=== PATIENT | male | born 1940 | race Caucasian/White ===

== ENCOUNTER → 2020-01-30 16:47 | Outpatient (CLI) | payer MEDICARE, SELFPAY ==
--- NOTE | ~2020-01-30 | XR_ITS ---
EXAMINATION: XR chest 2V DATE: 01/30/2020 16:58 INDICATION: Cough. Shortness of breath. TECHNIQUE: Frontal and lateral views of the chest were obtained. COMPARISON: Chest 2 views 09/12/2015, CT abdomen and pelvis 05/23/2019 FINDINGS: The lungs are hyperexpanded with lucencies and architectural distortion, consistent with em physema. There is multifocal mild scarring. There is blunting of left posterior costophrenic angle co rrelating with scarring by CT. No pleural effusion or pneumothorax. The heart size is normal. IMPRESSION: 1. Severe emphysema. Reviewed, dictated and finalized at location A. IMPRESSION: 1. Severe emphysema.
== END ==
PROVIDERS: PCP Family Medicine; Visit Provider Physician Assistant
DX: R05 Cough (principal); R06.02 Shortness of breath; J43.9 Emphysema, unspecified
CPT/HCPCS: 71046

== ENCOUNTER 2020-03-08 00:11 | Day surgery (SDC) | payer MEDICARE, SELFPAY ==
--- NOTE | 2020-02-28 10:53 | PM.HPGS ---
History of Present Illness History of Present Illness Consent: Risks, benefits, and alternatives have been discussed and questions answered. Patient agrees to proceed with procedure. Chief complaint: Bladder Ca Narrative: Toan Acevedo is a 79 year old male with a long history of recurrent bladder tumors. Recent surveillance cystoscopy showed an area of hyperemia in the posterior bladder wall just above the trigone. Urine cytology was abnormal, prompting decision to proceed with cystoscopy and bladder biopsy today, with possible TURBT. Review of Systems Cardiovascular: Cardiovascular: Denies chest pain, Denies lightheadedness, Denies palpitations and Denies dyspnea Respiratory: Respiratory: Denies dyspnea Gastrointestinal: Gastrointestinal: Denies diarrhea, Denies nausea and Denies vomiting Genitourinary: Genitourinary: Denies hematuria and Denies dysuria Endocrine: Endocrine: Denies palpitations [facility] Family History Family History Mother Diabetes mellitus Other Family history of malignant neoplasm of urinary bladder Social History Social History Smoking status: Current every day smoker Alcohol intake: never Meds Home Medications and Allergies Home Medications Medication Instructions Recorded Confirmed Type alprazolam 0.5 mg tablet 0.5 mg PO .qhs #90 tablet 12/19/19 Rx doxycycline hyclate 100 mg capsule 100 mg PO BID #20 cap 01/30/20 01/30/20 Rx losartan 50 mg tablet 50 mg PO DAILY 01/30/20 History methylprednisolone 4 mg tablets in See Rx Instructions PO PER PKG DIR 01/30/20 01/30/20 Rx a dose pack #21 each simvastatin 40 mg tablet 40 mg PO DAILY 01/30/20 History fluticasone fur. 100 mcg-umeclid 1 inhalation INHALATION DAILY #60 02/03/20 Rx 62.5 mcg-vilant 25 mcg each inhalat.powder Allergies Allergy/AdvReac Type Severity Reaction Status Date / Time cephalexin Allergy Unknown fatigue, Verified 01/30/20 15:50 not feeling right, bodyaches levofloxacin AdvReac Mild GI Verified 01/30/20 15:50 DISTRESS Exam Const: General: no acute distress Resp: Effort & Inspection: normal respiratory effort GI: Inspection: non-distended GI Palp: No abdominal tenderness and No Guarding due to palpation present (GI) Auscultation: normal bowel sounds Assessment and Plan Assessment and plan (1) 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
[2020-03-06 15:53] VITALS: BMI 17.2
[2020-03-08] VITALS (9 sets, daily range): BP systolic 115–177; BP diastolic 64–93; PULSE 55–92; RESP 10–20; TEMP 36.2–36.6; O2SAT 99–100
[2020-03-08] MEDS: LACTATED RINGERS 1,000 ML 30 ML IV CONT (06:30)
--- NOTE | 2020-03-08 06:51 | WPDANESEPPF ---
Anes - Initial Pre Proc Eval Procedure: Operation Date: 03/08/20 07:30 Proposed Procedures p Cystoscopy, Bladder Biopsy - Je Fernandez MD s Transurethral Resection Bladder Tumor - Je Fernandez MD Date/Time: 03/08/20 06:51 Surgeon: Je Fernandez MD Pre Op Diagnosis: Bladder Ca Patient Data Age: 79 Gender: M Height: 5 ft 10 in Weight: 52 kg Allergies Allergy/AdvReac Type Severity Reaction Status Date / Time cephalexin Allergy Severe Gastrointestinal Verified 03/08/20 06:41 Upset levofloxacin Allergy Mild Gastrointestinal Verified 03/08/20 06:41 Upset Home Medications Medication Instructions Recorded Confirmed Type alprazolam 0.5 mg tablet 0.5 mg PO .qhs #90 tablet 12/19/19 03/08/20 Rx simvastatin 40 mg tablet 40 mg PO DAILY 01/30/20 03/08/20 History uvnpdxtusqc-gnwncdkef-mvvvyyaj 1 inh INHALATION DAILY 03/06/20 03/08/20 History [Trelegy Ellipta] Patient hx anesthesia problems: none Family hx anesthesia problems: none PMFSH Past Medical History Medical History (Updated 03/08/20 @ 06:53 by Sergey Rios MD) AAA (abdominal aortic aneurysm) Anxiety Bladder cancer COPD (chronic obstructive pulmonary disease) History of home oxygen therapy HTN (hypertension) Hyperlipidemia Family History Family History Mother Diabetes mellitus Other Family history of malignant neoplasm of urinary bladder Social History Social History (Updated 03/08/20 @ 06:53 by Sergey Rios MD) Smoking status: Former smoker Alcohol intake: never Anes - Eval Final PreProcedure Day of Procedure 03/08/20 06:51 Patient weight: thin Heart: regular rate and rhythm Lungs: decreased breath sounds Airway: Mallampati scale class II Neurological: alert and oriented Last oral intake: >/= 8 hours ASA classification: IV Emergent: no Anesthetic plan: proceed Anesthesia type and monitoring: general LMA and standard monitoring Informed Consent: The patient's anesthetic plan and its attendant risks and benefits were discussed with the patient/family/POA. Questions were solicited and answers provided to the satisfaction of the patient/family/POA.
--- NOTE | 2020-03-08 07:17 | WPDHPUPDATE1 ---
History and Physical Update Update Date/Time: 03/08/20 07:17 History and Physical has been reviewed, including an updated exam of the patient. There are NO changes in the patient's condition. Risks, benefits, and alternatives have been discussed and questions answered. Patient agrees to proceed with procedure.
[2020-03-08] MEDS: ceFAZolin 2 GM/D5W 50 ML 2 GM/50 ML BAG IVPB (07:27)
[2020-03-08] MEDS: LIDOCAINE HCL 2% GEL UROJET 10 ML PKG MUCOUS MEM (07:39)
--- NOTE | 2020-03-08 07:59 | P.OP_ITS ---
Procedure Note - Detailed Date of procedure: 03/08/20 Pre-op diagnosis: Bladder Ca Post-op diagnosis: same Procedure performed: TURBT (small, 2cm) Description of procedure: The patient was brought to the operative suite where he is prepped and draped in a routine sterile fashion while in the dorsal lithotomy position. This is done after the uneventful administration of systemic sedation. 2% Xylocaine jelly is introduced intraurethrally and allowed to stand for an appropriate period of time. A 24F resectoscope sheath was placed in the bladder and the bladder is circumferentially inspected carefully. 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 This area is resected in its entirety with an attempt made to include detrusor muscle for pathological evaluation of invasion. The b ase and periphery of this resected side is cauterized with a loop electrode. The bladder is emptied and the resectoscope was removed. The patient is taken to the recovery room having tolerated this procedure well. Anesthesia: GLMA Surgeon: Je Fernandez MD Horticulture Instructor: None Estimated blood loss (mL): 0 Drains: No Packing: No Pathology: yes (Bladder tumor) Complications: No immediate complications Condition: stable Disposition: PACU
== END 2020-03-08 10:00 | disposition home or self-care (01) ==
PROVIDERS: PCP Family Medicine; Visit Provider Urology
PROC: 0TBB8ZX Excision of Bladder, Via Natural or Artificial Opening Endoscopic, Diagnostic (ICD-10-PCS; CPT 52204; principal; 2020-03-08 07:30)
DX: C67.4 Malignant neoplasm of posterior wall of bladder (principal); I10 Essential (primary) hypertension; E78.2 Mixed hyperlipidemia; J44.9 Chronic obstructive pulmonary disease, unspecified; I71.4 Abdominal aortic aneurysm, without rupture; F17.210 Nicotine dependence, cigarettes, uncomplicated
CPT/HCPCS: 52234; 88305; 88307; A9270; J0690; J3010; J7120